=== PATIENT | female | born 1950 | race Caucasian/White ===

== ENCOUNTER 2016-07-24 13:17 | Emergency (ER) | payer OTHER ==
[~2016-07-24] VITALS: Ht 144.8 cm; Wt 73.2 kg
[~2016-07-24 13:17] MED LIST: ADVAIR 100-501 EACH IH; ADVAIR 250-501 EACH IH; AMLODIPINE BESY10 MG PO; ASPIR-MOX 325325 MG PO; ASPIRIN325 MG PO; Antivert PO; CEFTIN500 MG PO; CELEXA10 M1 GT; CITALOPRAM HBR20 MG PO; CLONAZEPAM0.5 MG PO; CLONAZEPAM1 M1 PO; CYCLOBENZAPRINE10 MG PO; D-VERT25 MG PO; FIBER THERAPY0.52 GM PO; FIBER-LAX625 M1 PO; LISINOPRIL10 MG PO; LORATADINE10 M2 PO; MECLIZINE HCL25 MG PO; MOTRIN800 MG PO; NEXIUM40 MG PO; PERCOCET 5/31 TABLET PO; PRAVACHOL20 MG PO; PREDNISONE20 MG PO; PROAIR HFA8.5 GM IH; TRAMADOL HCL50 MG PO; ZETIA10 MG PO
[2016-07-24] MEDS ORDERED: VALIUM2 MG PO (16:09)
[2016-07-24] MEDS ORDERED: MOTRIN600 MG PO (16:09)
[2016-07-24] MEDS ORDERED: FLEXERIL5 MG PO (16:21)
[2016-07-24 16:26] VITALS: BP 121/68
== END 2016-07-24 16:29 | disposition home or self-care (01) ==
LOC: EME 13:17
DX: S16.1XXA Strain of muscle, fascia and tendon at neck level, initial encounter (principal); S39.012A Strain of muscle, fascia and tendon of lower back, initial encounter; S80.01XA Contusion of right knee, initial encounter; V49.40XA Driver injured in collision with unspecified motor vehicles in traffic accident, initial encounter; E78.5 Hyperlipidemia, unspecified; I10 Essential (primary) hypertension; G89.29 Other chronic pain; K21.9 Gastro-esophageal reflux disease without esophagitis
CPT/HCPCS: 72040; 72100; 73564; 99281; 99284